=== PATIENT | male | born 1985 | race Caucasian/White ===

== ENCOUNTER 2018-05-28 06:36 | Day surgery (SDC) | payer OTHER | END 2018-05-28 11:45 | disposition home or self-care (01) | LOC: AMB-ENDOS 06:36 | DX: C20 Malignant neoplasm of rectum (principal); K64.1 Second degree hemorrhoids ==

== ENCOUNTER 2018-06-24 11:45 | Inpatient (IN) | payer OTHER ==
[~2018-06-24] VITALS: Ht 172.7 cm; Wt 54.4 kg
[2018-06-24] MEDS ORDERED: CLARITIN10 M1 PO (13:31)
[2018-06-24] MEDS ORDERED: DUCOSATE (13:32)
[2018-06-24] MEDS ORDERED: TRAMADOL HCL50 MG PO (13:32)
[2018-06-24] MEDS ORDERED: PEPCID20 MG PO (13:32)
== END 2018-07-02 15:17 | disposition home or self-care (01) | DRG 331 ==
LOC: O/R 06-29 06:55 → SURH 06-29 06:55 → SURG 06-29 11:45 → SURH 06-29 14:46 → SURG 06-29 16:45 → SURH 06-29 17:59
PROVIDERS: Colon & Rectal Surgery
PROC: 0DTP4ZZ Resection of Rectum, Percutaneous Endoscopic Approach (ICD-10-PCS; 2018-06-29)
PROC: 07TC4ZZ Resection of Pelvis Lymphatic, Percutaneous Endoscopic Approach (ICD-10-PCS; 2018-06-29)
PROC: 0D1B4Z4 Bypass Ileum to Cutaneous, Percutaneous Endoscopic Approach (ICD-10-PCS; 2018-06-29)
PROC: 0DJD8ZZ Inspection of Lower Intestinal Tract, Via Natural or Artificial Opening Endoscopic (ICD-10-PCS; 2018-06-29)
PROC: 0DTN4ZZ Resection of Sigmoid Colon, Percutaneous Endoscopic Approach (ICD-10-PCS; principal; 2018-06-29 16:45)
DX: C20 Malignant neoplasm of rectum (principal); D50.0 Iron deficiency anemia secondary to blood loss (chronic)

== ENCOUNTER 2018-09-13 10:54 | Outpatient (CLI) | payer OTHER ==
[~2018-09-13 10:54] MED LIST: CLARITIN10 M1 PO; DUCOSATE; PEPCID20 MG PO; TRAMADOL HCL50 MG PO
== END 2018-09-13 15:49 | disposition home or self-care (01) ==
LOC: RX STUDY 10:54
DX: C20 Malignant neoplasm of rectum (principal)

== ENCOUNTER 2018-11-09 10:30 | Inpatient (IN) | payer OTHER ==
[~2018-11-09] VITALS: Ht 165.1 cm; Wt 54.4 kg
[2018-11-17] MEDS ORDERED: COLACE CLEAR50 MG PO (09:40)
== END 2018-11-20 13:28 | disposition home or self-care (01) | DRG 330 ==
LOC: O/R 11-17 07:04 → SURG 11-17 07:04 → SURH 11-17 09:45 → SURG 11-17 14:55
PROVIDERS: ADMIT Colon & Rectal Surgery
PROC: 0DQB4ZZ Repair Ileum, Percutaneous Endoscopic Approach (ICD-10-PCS; principal; 2018-11-17 09:45)
DX: Z43.2 Encounter for attention to ileostomy (principal); C20 Malignant neoplasm of rectum; Z85.048 Personal history of other malignant neoplasm of rectum, rectosigmoid junction, and anus; D50.0 Iron deficiency anemia secondary to blood loss (chronic)

== ENCOUNTER 2019-05-25 11:58 | Inpatient (IN) | payer OTHER ==
[~2019-05-25] VITALS: Ht 172.7 cm; Wt 44.0 kg
[~2019-05-25 11:58] MED LIST changes: +COLACE CLEAR50 MG PO
[2019-05-25] MEDS ORDERED: DURAGESIC1 EAC4 (12:01)
--- NOTE | 2019-05-25 12:03 | NUR ---
SE RECIBE PTE ALERTA Y ORIENTADO X3 EL CUAL REFIERE VENIR POR DEBILIDAD Y LABORATORIOS ALTERADOS. PTE REFIERE PADECER DE CA DE COLON Y WOLF ULTIMA QUIMIOTERAPIA FUE HACE POCO. PTE REFIERE ESTAR UTILIZANDO MPARCHO DE FENTANYL EL CUAL COMENZO A UTILIZAR RENE EL KEVIN DE HOY. PTE DE DR. BLAKE. SE COLOCA A PTE EN AREA DE SEC. K. PENDIENTE A EVALUACION MEDICA.
--- NOTE | 2019-05-25 12:48 | NUR ---
SE EDUCA A PTE SOBRE [place] MEDICO MAGDALENA REFIERE ENTENDER. SE NOHA MUESTRAS DE LAB UTILIZANDO MEDIDAS ASEPTICAS, SE COLOCA H/LX2 EN BRAZO CAMILO LOS CUALES SE ENCUENTRAN PATENTES. SE ADMINISTRA WIN CON MVT A PTE. SE NOAH TUBOS PILOTOS Y SE REQUIZAN 2 UNIDADES DE PRBC EN [place]. PTE SE CONTINUA MONITORIANDO POR CAMBIOS.
--- NOTE | 2019-05-25 14:09 | NUR ---
SE RECIBE LLAMADA DE MR. RINALDI DE [place] SOBRE LA DISPONIBILIDAD DE LAS 2 UNIDADES DE PRBC.
[2019-06-06] MEDS ORDERED: LEVOTHYROXINE50 MCG PO (14:19)
[2019-06-06] MEDS ORDERED: NeurRONTin 100mg cap PO (14:19)
[2019-06-06] MEDS ORDERED: Vitamin B-6 PO (14:19)
[2019-06-06] MEDS ORDERED: GAS RELIEF125 MG PO (14:19)
[2019-06-06] MEDS ORDERED: PRE PROTEIN1 EACH PO (14:19)
[2019-06-06] MEDS ORDERED: NEURONTIN300 MG PO (14:19)
[2019-06-06] MEDS ORDERED: INTEGRA F CAPS1 EACH PO (14:19)
[2019-06-06] MEDS ORDERED: ACIDOPHILUS-PE1 EAC2 PO (14:19)
[2019-06-06] MEDS ORDERED: Neurin-Sl Tablet Sl SL (14:19)
[2019-06-06] MEDS ORDERED: HYOSCYAMINE0.125 M1 SL (14:19)
[2019-06-06] MEDS ORDERED: PEPCID20 MG PO (14:19)
[2019-06-06] MEDS ORDERED: OXYC1TAB9 PO (14:19)
== END 2019-06-06 17:57 | disposition home or self-care (01) | DRG 330 ==
LOC: ER 11:58 → MEDI 19:46 → MEDJ 19:46 → SEC-K 19:46 → MEDI 05-26 01:14 → MEDJ 05-26 01:14 → MEDI 05-26 01:38 → MEDJ 05-26 18:51
PROVIDERS: Colon & Rectal Surgery; ADMIT Internal Medicine Geriatric Medicine
PROC: 30233N1 Transfusion of Nonautologous Red Blood Cells into Peripheral Vein, Percutaneous Approach (ICD-10-PCS; 2019-05-25)
PROC: BW21Y0Z Computerized Tomography (CT Scan) of Abdomen and Pelvis using Other Contrast, Unenhanced and Enhanced (ICD-10-PCS; 2019-05-26)
PROC: 05H633Z Insertion of Infusion Device into Left Subclavian Vein, Percutaneous Approach (ICD-10-PCS; 2019-05-27)
PROC: 0D1N4Z4 Bypass Sigmoid Colon to Cutaneous, Percutaneous Endoscopic Approach (ICD-10-PCS; 2019-06-01)
PROC: 8E0ZXY6 Isolation (ICD-10-PCS; 2019-06-01)
PROC: 0DTP4ZZ Resection of Rectum, Percutaneous Endoscopic Approach (ICD-10-PCS; principal; 2019-06-01 12:00)
PROC: B54NZZZ Ultrasonography of Left Upper Extremity Veins (ICD-10-PCS; 2019-06-04)
DX: C20 Malignant neoplasm of rectum (principal); N39.0 Urinary tract infection, site not specified; D50.0 Iron deficiency anemia secondary to blood loss (chronic); K52.89 Other specified noninfective gastroenteritis and colitis; E03.8 Other specified hypothyroidism; Z85.048 Personal history of other malignant neoplasm of rectum, rectosigmoid junction, and anus; R29.898 Other symptoms and signs involving the musculoskeletal system; R94.6 Abnormal results of thyroid function studies; K62.7 Radiation proctitis; B96.1 Klebsiella pneumoniae [K. pneumoniae] as the cause of diseases classified elsewhere; B96.29 Other Escherichia coli [E. coli] as the cause of diseases classified elsewhere

== ENCOUNTER 2019-06-08 16:03 | Inpatient (IN) | payer OTHER ==
[~2019-06-08] VITALS: Ht 175.3 cm; Wt 54.4 kg
[~2019-06-08 16:03] MED LIST changes: +ACIDOPHILUS-PE1 EAC2 PO; +DURAGESIC1 EAC4; +GAS RELIEF125 MG PO; +HYOSCYAMINE0.125 M1 SL; +INTEGRA F CAPS1 EACH PO; +LEVOTHYROXINE50 MCG PO; +NEURONTIN300 MG PO; +NeurRONTin 100mg cap PO; +Neurin-Sl Tablet Sl SL; +OXYC1TAB9 PO; +PRE PROTEIN1 EACH PO; +Vitamin B-6 PO
[2019-06-09] MEDS ORDERED: GABAPENTIN100 MG PO (08:27)
[2019-06-09] MEDS ORDERED: ABANEU-SL TABL1 EACH SL (08:27)
[2019-06-09] MEDS ORDERED: PYRIDOXINE HCL100 MG PO (08:29)
[2019-06-16] MEDS ORDERED: ABANEU-SL TABL1 EACH SL (13:47)
[2019-06-16] MEDS ORDERED: PRE PROTEIN1 EACH PO (13:47)
[2019-06-16] MEDS ORDERED: ACIDOPHILUS-PE1 EAC2 PO (13:47)
[2019-06-16] MEDS ORDERED: XARELTO15 MG PO (13:47)
[2019-06-16] MEDS ORDERED: INTEGRA F CAPS1 EACH PO (13:47)
[2019-06-16] MEDS ORDERED: PYRIDOXINE HCL100 MG PO (13:47)
[2019-06-16] MEDS ORDERED: FLUCONAZOL200 MG/101 IV (13:47)
[2019-06-16] MEDS ORDERED: HYOSCYAMINE0.125 M1 SL (13:47)
[2019-06-16] MEDS ORDERED: LEVOTHYROXINE25 MCG PO (13:47)
[2019-06-16] MEDS ORDERED: PROTONIX40 MG PO (13:47)
== END 2019-06-16 20:52 | disposition home or self-care (01) | DRG 177 ==
LOC: ER 16:03 → MEDJ 18:52 → SEC-K 18:52 → MEDJ 06-09 04:13
PROVIDERS: ADMIT Internal Medicine Geriatric Medicine
PROC: 4A033R1 Measurement of Arterial Saturation, Peripheral, Percutaneous Approach (ICD-10-PCS; principal; 2019-06-09)
PROC: 3E0F7GC Introduction of Other Therapeutic Substance into Respiratory Tract, Via Natural or Artificial Opening (ICD-10-PCS; 2019-06-09)
PROC: BB24ZZZ Computerized Tomography (CT Scan) of Bilateral Lungs (ICD-10-PCS; 2019-06-09)
PROC: B246ZZZ Ultrasonography of Right and Left Heart (ICD-10-PCS; 2019-06-09)
PROC: 02HV33Z Insertion of Infusion Device into Superior Vena Cava, Percutaneous Approach (ICD-10-PCS; 2019-06-09)
PROC: 8E0ZXY6 Isolation (ICD-10-PCS; 2019-06-15)
DX: J15.5 Pneumonia due to Escherichia coli (principal); B37.1 Pulmonary candidiasis; B49 Unspecified mycosis; I82.622 Acute embolism and thrombosis of deep veins of left upper extremity; I50.40 Unspecified combined systolic (congestive) and diastolic (congestive) heart failure; E03.8 Other specified hypothyroidism; D50.0 Iron deficiency anemia secondary to blood loss (chronic); Z85.048 Personal history of other malignant neoplasm of rectum, rectosigmoid junction, and anus; I11.0 Hypertensive heart disease with heart failure

== ENCOUNTER → 2019-07-14 | Outpatient (CLI) | payer OTHER ==
[~2019-07-14] MED LIST changes: +ABANEU-SL TABL1 EACH SL; +FLUCONAZOL200 MG/101 IV; +GABAPENTIN100 MG PO; +LEVOTHYROXINE25 MCG PO; +PROTONIX40 MG PO; +PYRIDOXINE HCL100 MG PO; +XARELTO15 MG PO
== END | disposition home or self-care (01) ==
LOC: NUCLEAR 07-12 10:00
DX: I50.30 Unspecified diastolic (congestive) heart failure (principal)

== ENCOUNTER 2019-09-08 14:33 | Outpatient (CLI) | payer OTHER | END 2019-09-08 15:00 | disposition home or self-care (01) | LOC: NUCLEAR 14:33 | DX: I82.409 Acute embolism and thrombosis of unspecified deep veins of unspecified lower extremity (principal) ==

== ENCOUNTER 2020-08-03 09:21 | Day surgery (SDC) | payer OTHER ==
[~2020-08-03 09:21] MED LIST changes: +BACLOFEN10 MG PO
== END 2020-08-03 14:55 | disposition home or self-care (01) ==
LOC: AMB-ENDOS 09:21
PROVIDERS: ATTEND Colon & Rectal Surgery
DX: C20 Malignant neoplasm of rectum (principal); Z20.828 Contact with and (suspected) exposure to other viral communicable diseases

== ENCOUNTER 2021-04-16 11:35 | Inpatient (IN) | payer OTHER ==
[~2021-04-16] VITALS: Ht 172.7 cm; Wt 71.2 kg
[2021-04-16] MEDS ORDERED: SYNTHROID50 MCG (11:44)
[2021-04-17] MEDS ORDERED: TRAMADOL HCL50 MG (13:05)
[2021-04-17] MEDS ORDERED: MESALAMINE1000 MG (13:05)
[2021-05-03] MEDS ORDERED: ELIQUIS5 MG PO (15:21)
[2021-05-03] MEDS ORDERED: FLAGYL500MG PO (15:21)
[2021-05-03] MEDS ORDERED: INTEGRA F CAPS1 EACH PO (15:21)
[2021-05-03] MEDS ORDERED: ABANEU-SL TABL1 EACH SL (15:21)
[2021-05-03] MEDS ORDERED: PYRIDOXINE HCL100 MG PO (15:21)
[2021-05-03] MEDS ORDERED: SYNTHROID50 MCG PO (15:21)
[2021-05-03] MEDS ORDERED: TRAMADOL HCL50 MG PO (15:21)
[2021-05-03] MEDS ORDERED: FAMOTIDINE20 MG PO (15:21)
== END 2021-05-03 18:19 | disposition home or self-care (01) | DRG 372 ==
LOC: ER 11:35 → EDSEX 12:38 → SEC-K 20:14 → SURG 20:14
PROVIDERS: ADMIT Colon & Rectal Surgery; ATTEND Colon & Rectal Surgery
PROC: 0W9G3ZZ Drainage of Peritoneal Cavity, Percutaneous Approach (ICD-10-PCS; principal; 2021-04-17)
PROC: 06H03DZ Insertion of Intraluminal Device into Inferior Vena Cava, Percutaneous Approach (ICD-10-PCS; 2021-04-25)
DX: K65.1 Peritoneal abscess (principal); K61.1 Rectal abscess; K62.5 Hemorrhage of anus and rectum; I50.32 Chronic diastolic (congestive) heart failure; I82.421 Acute embolism and thrombosis of right iliac vein; D50.0 Iron deficiency anemia secondary to blood loss (chronic); E03.8 Other specified hypothyroidism; I11.0 Hypertensive heart disease with heart failure; Z20.822 Contact with and (suspected) exposure to COVID-19; B96.29 Other Escherichia coli [E. coli] as the cause of diseases classified elsewhere; Z85.71 Personal history of Hodgkin lymphoma; G62.0 Drug-induced polyneuropathy; T45.1X5A Adverse effect of antineoplastic and immunosuppressive drugs, initial encounter; Z93.3 Colostomy status

== ENCOUNTER 2022-03-03 15:33 | Inpatient (IN) | payer OTHER ==
[~2022-03-03] VITALS: Ht 172.7 cm; Wt 68.0 kg
[~2022-03-03 15:33] MED LIST changes: +ELIQUIS5 MG PO; +FAMOTIDINE20 MG PO; +FLAGYL500MG PO; +MESALAMINE1000 MG; +NEURIN SL; +SYNTHROID50 MCG; +SYNTHROID50 MCG PO; +TRAMADOL HCL50 MG
[2022-03-04] MEDS ORDERED: ABANEU-SL TABL1 EACH (07:50)
[2022-03-21] MEDS ORDERED: PEPCID AC20 MG PO (13:16)
[2022-03-21] MEDS ORDERED: INTEGRA F CAPS1 EACH PO (13:16)
[2022-03-21] MEDS ORDERED: JUVEN PACKET1 EAC1 PO (13:16)
[2022-03-21] MEDS ORDERED: CLARITIN10 M1 PO (13:16)
[2022-03-21] MEDS ORDERED: AMOX-CLAV 875-1 EACH PO (13:16)
[2022-03-21] MEDS ORDERED: GABAPENTIN300 MG PO (13:16)
[2022-03-21] MEDS ORDERED: ABANEU-SL TABL1 EACH SL (13:16)
[2022-03-21] MEDS ORDERED: SYNTHROID50 MCG PO (13:16)
[2022-03-21] MEDS ORDERED: INTESTINEX680 M1 PO (13:16)
[2022-03-21] MEDS ORDERED: TRAMADOL HCL50 MG PO (13:16)
[2022-03-21] MEDS ORDERED: HYOSCYAMINE0.125 M1 SL (13:16)
[2022-03-21] MEDS ORDERED: PERCOCET 5-3251 EACH PO (13:27)
== END 2022-03-21 15:49 | disposition home or self-care (01) | DRG 329 ==
LOC: ER 15:33 → MEDI 17:20
PROVIDERS: Colon & Rectal Surgery; ADMIT Internal Medicine Geriatric Medicine; ATTEND Internal Medicine Geriatric Medicine
PROC: 02HV33Z Insertion of Infusion Device into Superior Vena Cava, Percutaneous Approach (ICD-10-PCS; 2022-03-04)
PROC: 0W9J30Z Drainage of Pelvic Cavity with Drainage Device, Percutaneous Approach (ICD-10-PCS; 2022-03-05)
PROC: B54PZZZ Ultrasonography of Bilateral Upper Extremity Veins (ICD-10-PCS; 2022-03-08)
PROC: B54NZZZ Ultrasonography of Left Upper Extremity Veins (ICD-10-PCS; 2022-03-17)
PROC: 0DTP4ZZ Resection of Rectum, Percutaneous Endoscopic Approach (ICD-10-PCS; 2022-03-19)
PROC: 0DTQ4ZZ Resection of Anus, Percutaneous Endoscopic Approach (ICD-10-PCS; 2022-03-19)
PROC: 07BC4ZZ Excision of Pelvis Lymphatic, Percutaneous Endoscopic Approach (ICD-10-PCS; 2022-03-19)
PROC: 0DTN4ZZ Resection of Sigmoid Colon, Percutaneous Endoscopic Approach (ICD-10-PCS; principal; 2022-03-19 11:00)
DX: K61.1 Rectal abscess (principal); A41.89 Other specified sepsis; C20 Malignant neoplasm of rectum; N39.0 Urinary tract infection, site not specified; E87.1 Hypo-osmolality and hyponatremia; J90 Pleural effusion, not elsewhere classified; E86.0 Dehydration; D64.9 Anemia, unspecified; R00.0 Tachycardia, unspecified; Z85.71 Personal history of Hodgkin lymphoma; E88.09 Other disorders of plasma-protein metabolism, not elsewhere classified; Z20.822 Contact with and (suspected) exposure to COVID-19; I80.3 Phlebitis and thrombophlebitis of lower extremities, unspecified

== ENCOUNTER 2023-05-17 17:16 | Inpatient (IN) | payer OTHER ==
[~2023-05-17] VITALS: Ht 175.3 cm; Wt 68.0 kg
[~2023-05-17 17:16] MED LIST changes: +ABANEU-SL TABL1 EACH; +AMOX-CLAV 875-1 EACH PO; +GABAPENTIN300 MG PO; +INTESTINEX680 M1 PO; +JUVEN PACKET1 EAC1 PO; +PEPCID AC20 MG PO; +PERCOCET 5-3251 EACH PO
[2023-05-20] MEDS ORDERED: BACLOFEN10 MG (16:28)
[2023-05-20] MEDS ORDERED: ABANEU-SL TABL1 EACH (16:28)
[2023-05-22] MEDS ORDERED: INTEGRA F CAPS1 EACH PO (10:49)
[2023-05-22] MEDS ORDERED: SYNTHROID50 MCG PO (10:49)
[2023-05-22] MEDS ORDERED: ABANEU-SL TABL1 EACH SL (10:49)
[2023-05-22] MEDS ORDERED: LEVOFLOXACIN750 MG PO (10:49)
[2023-05-22] MEDS ORDERED: BENZONATATE100 MG PO (10:49)
[2023-05-22] MEDS ORDERED: MUCINEX600 MG PO (10:49)
[2023-05-22] MEDS ORDERED: PEPCID AC20 MG PO (10:49)
== END 2023-05-22 11:28 | disposition home or self-care (01) | DRG 195 ==
LOC: ER 17:16 → SEC-K 05-18 12:26 → SURG 05-18 12:26 → MEDI 05-18 12:26 → SURG 05-18 16:57 → MEDI 05-19 13:51
PROVIDERS: ADMIT Internal Medicine Geriatric Medicine; ATTEND Internal Medicine Geriatric Medicine
PROC: BB24ZZZ Computerized Tomography (CT Scan) of Bilateral Lungs (ICD-10-PCS; principal; 2023-05-17)
PROC: 3E0F7GC Introduction of Other Therapeutic Substance into Respiratory Tract, Via Natural or Artificial Opening (ICD-10-PCS; 2023-05-18)
PROC: 4A12X4Z Monitoring of Cardiac Electrical Activity, External Approach (ICD-10-PCS; 2023-05-18)
DX: J18.9 Pneumonia, unspecified organism (principal); R09.02 Hypoxemia; E03.8 Other specified hypothyroidism; Z85.71 Personal history of Hodgkin lymphoma; Z93.3 Colostomy status

== ENCOUNTER 2025-05-24 05:38 | Day surgery (SDC) | payer OTHER ==
[~2025-05-24 05:38] MED LIST changes: +BACLOFEN10 MG; +BENZONATATE100 MG PO; +LEVOFLOXACIN750 MG PO; +MUCINEX600 MG PO; +NEURIN S/L; +VITAMIN D
[2025-05-24] MEDS ORDERED: CEFAZOLIN SODIUM 1,000 MG VIAL ONE (07:28)
[2025-05-24] MEDS ORDERED: CEFAZOLIN SODIUM 1,000 MG VIAL IV ONE (09:30)
[2025-05-24] MEDS ORDERED: BUPIVACAINE HCL 30 ML VIAL IJ ONE (09:30)
[2025-05-24] MEDS ORDERED: LIDOCAINE HCL 1%/EPINEPHRINE 20ML VIAL IJ ONE (09:30)
[2025-05-24 15:42] VITALS: BP 115/69; O2SAT 100
== END 2025-05-24 12:30 | disposition home or self-care (01) ==
LOC: CIR.AMB 05:38
PROVIDERS: ATTEND Colon & Rectal Surgery
DX: T82.594A Other mechanical complication of infusion catheter, initial encounter (principal); C20 Malignant neoplasm of rectum; Z85.048 Personal history of other malignant neoplasm of rectum, rectosigmoid junction, and anus